=== PATIENT | female | born 1995 | race Caucasian/White ===

== ENCOUNTER 2019-06-01 12:20 | Outpatient (CLI) | payer OTHER ==
--- NOTE | 2019-06-02 08:20 | MRI Report ---
Reason: LT ANKLE SPRAIN WITH REFRACTORY PAIN Procedure Date: 06/01/2019 Accession Number: [id number] / [id number] Procedure: MRI - Ankle LT W/O CPT Code: Final Report FULL RESULT: EXAM: LEFT ANKLE/HINDFOOT MRI WITHOUT CONTRAST EXAM DATE: 06/01/2019 01:23 PM. CLINICAL HISTORY: Left ankle sprain with refractory pain. Lateral ankle pain after fall. COMPARISON: None. TECHNIQUE: Multiplanar, multisequence T1-weighted and fluid-sensitive sequences of the ankle/hindfoot without contrast. Other: None. FINDINGS: Bones: No fractures. Bony contusion is demonstrated in the lateral talar dome. Articular Cartilage: An articular cartilage flap is demonstrated in the lateral talar dome over region measuring 4 x 7 mm (701/26). Ligaments: The anterior and posterior tibiofibular and posterior talofibular ligaments are intact. The anterior talofibular ligament is completely torn from the talar side. The calcaneofibular ligament is edematous with a partial tear distally. The deep and superficial deltoid and spring ligaments are intact. Anterior Tendons: The tibialis anterior, extensor hallucis longus, and extensor digitorum longus tendons are unremarkable. Medial Tendons: The tibialis posterior, flexor digitorum longus, and flexor hallucis longus tendons are unremarkable. Lateral Tendons: A small amount of fluid in the peroneal tendon sheath could represent mild tenosynovitis. Achilles Tendon: The Achilles tendon is unremarkable. Musculature: No edema or fatty atrophy. Other: Moderate tibiotalar joint effusion is seen. The contents of the sinus tarsi and tarsal tunnel are unremarkable. No plantar fasciitis. The subcutaneous tissues are unremarkable. IMPRESSION: 1. Articular cartilage flap from the lateral portion of the talar dome. 2. Grade 3 anterior talofibular and grade 2 calcaneofibular ligament sprains. 3. Moderate tibiotalar joint effusion. RADIA
== END 2019-06-01 12:21 | disposition home or self-care (01) ==
LOC: DI 12:20
PROVIDERS: ATTEND Student in an Organized Health Care Education/Training Program
DX: S93.492A Sprain of other ligament of left ankle, initial encounter (principal); S93.412A Sprain of calcaneofibular ligament of left ankle, initial encounter; M25.472 Effusion, left ankle

== ENCOUNTER 2019-06-27 13:46 | Outpatient (CLI) | payer OTHER ==
--- NOTE | 2019-07-04 09:14 | MRI Report ---
Reason: RT KNEE PAIN Procedure Date: 06/27/2019 Accession Number: [id number] / [id number] Procedure: MRI - Knee RT W/O CPT Code: Final Report FULL RESULT: EXAM: RIGHT KNEE MRI WITHOUT CONTRAST EXAM DATE: 06/27/2019 03:08 PM. CLINICAL HISTORY: RT KNEE PAIN. COMPARISON: None. TECHNIQUE: Multiplanar, multisequence T1-weighted and fluid-sensitive sequences of the knee without contrast. Other: None. FINDINGS: Bones and articular cartilage: Bone contusion at the anterolateral aspect of the lateral femoral condyle and posterior aspects of the medial and lateral tibial plateaus. Articular cartilage is within normal limits. No subluxations. Medial Meniscus: The medial meniscus is intact. Lateral Meniscus: The lateral meniscus is intact. Cruciate Ligaments: There is a tear at the proximal aspect of the anterior cruciate ligament which appears to be more likely complete. The posterior cruciate ligament is intact. Collateral Ligaments: The medial collateral and lateral collateral ligamentous structures are intact. Tendons: The quadriceps, patellar, semimembranosus, and popliteus tendons are unremarkable. Musculature: No edema or fatty atrophy. Other: Small joint effusion. No popliteal cyst. No loose bodies. The medial and lateral retinacula are intact. The subcutaneous tissues and fat pads are unremarkable. IMPRESSION: 1. Anterior cruciate ligament tear which is more likely complete. 2. Bone contusions at the lateral femoral condyle and the posterior aspect of the tibial plateau. 3. No meniscal tear. 4. Small joint effusion. RADIA
== END 2019-06-27 13:47 | disposition home or self-care (01) ==
LOC: DI 13:46
PROVIDERS: ATTEND Student in an Organized Health Care Education/Training Program
DX: S83.511A Sprain of anterior cruciate ligament of right knee, initial encounter (principal); S70.11XA Contusion of right thigh, initial encounter; S80.11XA Contusion of right lower leg, initial encounter; M25.461 Effusion, right knee

== ENCOUNTER 2019-12-12 06:25 | Day surgery (SDC) | payer OTHER ==
[2019-12-12] MEDS ORDERED: PROPOFOL 200 MG/20 ML VIAL IVP ONE (06:26)
[2019-12-12] MEDS ORDERED: ACETAMINOPHEN 1,000 MG/100 ML 100 ML IV ONE (06:26)
[2019-12-12] MEDS ORDERED: ONDANSETRON 4 MG/2 ML VIAL IVP ONE (06:26)
[2019-12-12] MEDS ORDERED: MIDAZOLAM 2 MG/2 ML VIAL IVP ONE (06:26)
[2019-12-12] MEDS ORDERED: DEXAMETHASONE 4 MG/ML VIAL IVP ONE (06:26)
[2019-12-12] MEDS ORDERED: HYDROmorphone 1 MG/ML CARPUJECT IVP ONE (06:26)
[2019-12-12] MEDS ORDERED: KETOROLAC 30 MG/ML VIAL IVP ONE (06:26)
[2019-12-12] MEDS ORDERED: fentaNYL 100 MCG/2 ML VIAL IVP ONE (06:26)
[2019-12-12] MEDS ORDERED: LACTATED RINGERS 1,000 ML IV ONE ×2 (06:33→10:28)
[2019-12-12 06:44] LABS: HCG UR QUAL NEGATIVE
[2019-12-12] MEDS ORDERED: CEFAZOLIN SODIUM IN 0.9 % NACL 2 GM/100 ML BAG IV ONE (07:06)
[2019-12-12] MEDS ORDERED: BUPIVACAINE 0.25% PF 30 ML VIAL ONE (07:13)
[2019-12-12] MEDS ORDERED: EPINEPHrine 1 MG/ML AMP ONE (07:13)
--- NOTE | 2019-12-12 07:17 | ANESTHESIA ---
Pre-Anesthesia VS, & Labs - Diagnosis right knee acl rupture - Procedure right knee ACL rupture Vital Signs: Temp Pulse Resp BP Pulse Ox 36.5 C 59 L 12 101/48 L 100 12/12/19 06:33 12/12/19 06:33 12/12/19 06:33 12/12/19 06:33 12/12/19 06:33 Height 5 ft 7 in Weight (kg) 71.3 kg - NPO >8 hours - Is Patient ?: No Home Medications and Allergies Home Medications: Ambulatory Orders No Known Home Medications 12/07/19 No Known Home Medications 12/07/19 Allergies/Adverse Reactions: Allergies Allergy/AdvReac Type Severity Reaction Status Date / Time No Known Drug Allergies Allergy Verified 12/07/19 11:13 Anes History & Medical History - Anesthetic History Anesthesia Complications: reports: No previous complications, Slow wake-up - Medical History Cardiovascular: reports: None Pulmonary: reports: None Gastrointestinal: reports: None Urinary: reports: None Musculoskeletal: reports: Other Endocrine/Autoimmune: reports: None Skin: reports: None - Surgical History Orthopedic: Other (left ankle ligament repair) Exam General: Alert Dental: WNL Mouth Opening: Greater than 4 Fingerbreadths Neck Mobility: Normal Mallampati classification: I Thyromental Distance: greater than 6 cm Respiratory: Lungs clear Cardiovascular: Regular rate Plan Anesthesia Type: General Consent for Procedure(s) Verified and Reviewed: Yes Code Status: Attempt Resuscitation ASA classification: 1-Healthy patient Is this case an emergency?: No
[2019-12-12] MEDS ORDERED: EPINEPHrine 1 MG/ML AMP IV ONE (08:00)
--- NOTE | 2019-12-12 08:13 | ANESTHESIA PROCEDURE NOTE ---
Diagnosis: Right ACL tear Procedure: Right Adductor canal block Consent for Procedure(s) Verified and Reviewed: Yes Height and Weight: Height 5 ft 7 in Weight (kg) 71.3 kg Vital Signs: Temp Pulse Resp BP Pulse Ox 36.5 C 59 L 12 101/48 L 100 12/12/19 06:33 12/12/19 06:33 12/12/19 06:33 12/12/19 06:33 12/12/19 06:33 Allergies No Known Drug Allergies Allergy (Verified 12/07/19 11:13) Requesting Provider: Nikky Location: Right Anes. Monitoring and Equipment: Non-invasive BP, Pulse oximetery Anes. Procedure Start Time: 07:30 Anes. Procedure Stop Time: 07:39 Procedure Notes: Patient's right thigh prepped with chlorohexadine. The femoral artery was identified. A 22G stimiplex blunted needle was inserted and advanced towards the saphenous nerve. After negative aspiration, a total of 30ml of 0.5% ropivicaine with 4mg decadron was injected into the adductor canal with adequate spread noted. Images saved on US hard drive. Patient tolerated well. Full evaluation pending.
[2019-12-12] MEDS ORDERED: BUPIVACAINE 0.25% PF 30 ML VIAL SUBQ ONE (10:37)
[2019-12-12] MEDS ORDERED: ONDANSETRON 4 MG/2 ML VIAL IVP PRN (11:11)
[2019-12-12] MEDS ORDERED: oxyCODONE 5 MG TABLET PO PRN (11:11)
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
[2019-12-12] MEDS ORDERED: HYDROcod/ACETAM 5/325 MG TABLET PO PRN (11:19)
[2019-12-12] MEDS: fentaNYL 100 MCG/2 ML VIAL ONE ×2 (11:19→11:26)
[2019-12-12 12:03] VITALS: BP 117/62
== END 2019-12-12 06:26 | disposition home or self-care (01) ==
LOC: SDS 06:25
PROVIDERS: ATTEND Orthopaedic Surgery
DX: S83.511A Sprain of anterior cruciate ligament of right knee, initial encounter (principal); F17.220 Nicotine dependence, chewing tobacco, uncomplicated
CPT/HCPCS: 81025